=== PATIENT | female | born 1995 | race Caucasian/White ===

== ENCOUNTER 2018-04-17 16:43 | Outpatient (CLI) | payer OTHER ==
--- NOTE | 2018-04-19 05:12 | Ultrasound Report ---
Reason: TEST POSITIVE Procedure Date: 04/17/2018 Accession Number: [id number] / [id number] Procedure: US - OB First Trimester CPT Code: FULL RESULT: EXAM: FIRST TRIMESTER OBSTETRIC ULTRASOUND (Less than 11 weeks) EXAM DATE: 04/17/2018 05:23 PM. CLINICAL HISTORY: test positive. LMP: 03/02/2018, 6 weeks 4 days. COMPARISONS: None. TECHNIQUE: Transabdominal ultrasound examination with static image documentation. FINDINGS: Gestational Sac: An intrauterine fluid-filled sac contains a live embryo. Embryo: CRL (crown-rump length) measures 9.7 mm corresponding to an estimated gestational age of 6 weeks 1 day. Heart Rate: 114 beats per minute. Placenta: Not visible at this gestational age. Amniotic fluid: Not accurately assessed at this gestational age. Uterus: Unremarkable anteverted appearance. Cervix: Closed. Right Ovary: Volume 5.3 cc. Normal echotexture and blood flow. Left Ovary: Volume 10.2 cc. Normal echotexture and blood flow. Free Fluid: None. Other: None. IMPRESSION: Single live intrauterine at 6 weeks 4 days by LMP, today's exam is concordant -- for an estimated delivery date of 12/07/2018. RADIA
== END 2018-04-17 16:44 | disposition home or self-care (01) ==
LOC: DI 16:43
PROVIDERS: ATTEND Registered Nurse
DX: Z32.01 Encounter for pregnancy test, result positive (principal)
CPT/HCPCS: 76801

== ENCOUNTER 2018-05-22 13:42 | Outpatient (CLI) | payer OTHER ==
[2018-05-22 15:19] LABS: MUDS CUTOFF CONCENTRATIONS CUTOFF CONC BELOW:
[2018-05-22 15:46] LABS: AMPHETAMINE SCREEN,URINE NEGATIVE (NEGATIVE); BENZODIAZEPINES SCREEN, URINE NEGATIVE (NEGATIVE); COCAINE SCREEN URINE NEGATIVE (NEGATIVE); METHADONE SCREEN, URINE NEGATIVE (NEGATIVE); METHAMPHETAMINES SCREEN, URINE NEGATIVE (NEGATIVE); OPIATE SCREEN, URINE NEGATIVE (NEGATIVE); OXYCODONE SCREEN, URINE NEGATIVE (NEGATIVE); PROPOXYPHENE SCREEN, URINE NEGATIVE (NEGATIVE); TRICYCLIC ANTIDEPRESSANT,URINE NEGATIVE (NEGATIVE)
== END 2018-05-22 23:59 | disposition home or self-care (01) ==
LOC: LAB.R 13:42
PROVIDERS: ATTEND Nurse Practitioner Obstetrics & Gynecology
DX: Z36.9 Encounter for antenatal screening, unspecified (principal)
CPT/HCPCS: 80306

== ENCOUNTER 2018-06-04 11:36 | Outpatient (CLI) | payer MEDICAID ==
[2018-06-04 17:54] LABS: BILIRUBIN,URINE NEGATIVE (NEGATIVE); GLUCOSE, URINE (UA) NEGATIVE (NEGATIVE); KETONES,URINE (UA) NEGATIVE (NEGATIVE); LEUKOCYTE ESTERASE, URINE NEGATIVE (NEGATIVE); NITRITE,URINE NEGATIVE (NEGATIVE); OCCULT BLOOD,URINE NEGATIVE (NEGATIVE); PROTEIN,URINE NEGATIVE (NEGATIVE); UROBILINOGEN,URINE 0.2 (NORMAL) E.U./dL (NORMAL)
[2018-06-04 17:57] LABS: BASOPHILS % (AUTO) 0.2 %; EOSINOPHILS % (AUTO) 0.4 %; HGB - HEMOGLOBIN 12.3 g/dL (12.0-16.0); LYMPHOCYTES # (AUTO) 1.9 10^3/uL (1.5-3.5); LYMPHOCYTES % (AUTO) 17.3 %; MEAN CORPUSCULAR HEMOGLOBIN 28.4 pg (27.0-31.0); MEAN CORPUSCULAR HGB CONC 33.1 g/dL (32.0-36.0); MEAN CORPUSCULAR VOLUME 85.9 fL (81.0-99.0); MEAN PLATELET VOLUME 8.9 fL (7.9-10.8); MONOCYTES # (AUTO) 0.6 10^3/uL (0.0-1.0); MONOCYTES % (AUTO) 5.1 %; NEUTROPHILS # (AUTO) 8.7 10^3/uL (1.5-6.6); PLT - PLATELET COUNT 247 10^3/uL (130-450); RED BLOOD COUNT 4.34 10^6/uL (4.20-5.40); RED CELL DISTRIBUTION WIDTH 13.1 % (12.0-15.0); WHITE BLOOD COUNT 11.2 x10^3/uL (4.8-10.8)
[2018-06-04 18:10] LABS: BACTERIA,URINE Rare /HPF (None Seen); CLARITY,URINE CLEAR (CLEAR); RBC,URINE 0-5 /HPF (0-5); SQUAMOUS EPITHELIAL CELL,UR RARE Squamous (<= Few)
[2018-06-05 12:01] LABS: HEPATITIS B SURFACE ANTIGEN NON-REACTIVE (NON-REACTIVE)
[2018-06-05 13:21] LABS: HIV AG/AB 4TH GEN NON-REACTIVE (NON-REACTIVE)
[2018-06-10 11:40] LABS: HCV RNA QUANT RT PCR <15 NOT DETECTED
[2018-06-10 11:41] LABS: HCV RNA QNT <1.18 NOT DETECTED
== END 2018-06-04 11:37 | disposition home or self-care (01) ==
LOC: LAB.F 11:36
PROVIDERS: ATTEND Nurse Practitioner Obstetrics & Gynecology
DX: Z36.9 Encounter for antenatal screening, unspecified (principal)
CPT/HCPCS: 36415; 81001; 81599; 85025; 86592; 86762; 86850; 86900; 86901; 87086; 87340; 87389; 87522

== ENCOUNTER 2018-07-24 13:38 | Outpatient (CLI) | payer MEDICAID ==
--- NOTE | 2018-07-24 15:46 | Ultrasound Report ---
Reason: SUPERVISION OF NORMAL ,[facility] FOR Procedure Date: 07/24/2018 Accession Number: [id number] / [id number] Procedure: US - OB Detailed Eval CPT Code: FULL RESULT: EXAM: COMPLETE OBSTETRICAL ULTRASOUND EXAM DATE: 07/24/2018 01:57 PM. CLINICAL HISTORY: anatomic survey. COMPARISON: None. TECHNIQUE: Real-time sonographic evaluation of the fetus performed by the landscape crew leader. Multiple marketing representative static images were saved for review. DATING: Established EGA 20 weeks 4 days with DEEPIKA 12/17/2018 based on LMP and first ultrasound. EGA 19 weeks 6 days with DEEPIKA 12/12/2018 based on the current ultrasound. GENERAL EVALUATION Nielson . Cardiac activity: 140 bpm. movement: Visualized. Presentation: Breech Placenta: Anterior position. No evidence for previa. Umbilical cord: 3 vessel cord. Central placental cord origin. Amniotic fluid: Subjectively normal. MVP 3.9 cm. BIOMETRY Bi-Parietal Diameter (BPD): 4.4 cm, 19 weeks 3 days Head Circumference (HC): 17.4 cm, 19 weeks 6 days Abdominal Circumference (AC): 14.9 cm, 20 weeks 1 day Femur Length (FL): 3.2 cm, 19 weeks 6 days Estimated Weight: 326 g, 19th percentile for 20 weeks 4 days. ANATOMY Bilateral choroid plexus cysts measuring up to 7 mm on the right and up to 6 mm on the left are noted, one on each side detected. The intracranial structures, profile, face/nose/lips, spine, 4 chamber heart and outflow tracts, stomach, abdominal wall and cord insertion, diaphragm, kidneys, bladder, and extremities were visualized and demonstrate no abnormality. MATERNAL STRUCTURES Uterus: Unremarkable. Cervix: Long and closed. Transabdominal length 3.9 cm. Right ovary/adnexa: Unremarkable. Left ovary/adnexa: Unremarkable. Free fluid: None. IMPRESSION: 1. Nielson live intrauterine with gestational age 20 weeks 4 days based on LMP and first ultrasound. 2. Estimated weight is within expected limits for assigned dating. 3. Isolated choroid plexus cysts. The patient should return for additional focused ultrasound imaging looking for sonographic findings associated with trisomy 18, none detected by the landscape crew leader and none are identified on the submitted images. 4.Normal remaining anatomic survey. RADI The call report notification system was initiated by Dr. Thom Prado at 03:34 PM on 07/24/2018. The above call report findings were discussed with Luis M Boggs by Dr. Thom Prado at 03:41 PM on 07/24/2018.
== END 2018-07-24 13:39 | disposition home or self-care (01) ==
LOC: DI 13:38
PROVIDERS: ATTEND Obstetrics & Gynecology
DX: O35.0XX0 Maternal care for (suspected) central nervous system malformation in fetus, not applicable or unspecified (principal); O34.211 Maternal care for low transverse scar from previous cesarean delivery; Z3A.20 20 weeks gestation of pregnancy
CPT/HCPCS: 76811